=== PATIENT | female | born 1995 | race Caucasian/White ===

== ENCOUNTER → 2020-04-16 13:51 | Outpatient (CLI) | payer BC, SELFPAY ==
--- NOTE | ~2020-04-16 | US_ITS ---
EXAMINATION: US OB <= 14 weeks fetus DATE: 04/16/2020 14:31 INDICATION: Gestational dating TECHNIQUE: Real-time transabdominal obstetric ultrasound. FINDINGS: No prior studies for comparison. The uterus measures 8.9 x 5.6 x 6.2 cm. There is an intrauterine gestational sac, with pole marcio ntified. The crown rump length measures 1.57 cm, which correlates with a estimated gestational age o f 8 weeks 0 days. heart tones are identified measuring 165 bpm. The ovaries within normal kovacs its. No free fluid in the pelvis. IMPRESSION: 1. SL IUP with an EGA of 8 weeks, 0 days (EDC by current ultrasound of 11/26/2020). Reviewed, dictated and finalized at location A. IMPRESSION: 1. SL IUP with an EGA of 8 weeks, 0 days (EDC by current ultrasound of ).
== END ==
PROVIDERS: Visit Provider Obstetrics & Gynecology
DX: O26.841 Uterine size-date discrepancy, first trimester (principal); Z3A.08 8 weeks gestation of pregnancy
CPT/HCPCS: 76801

== ENCOUNTER → 2020-07-03 13:15 | Outpatient (CLI) | payer BC, SELFPAY ==
--- NOTE | ~2020-07-03 | US_ITS ---
EXAMINATION: US OB >= 14 weeks Fetus DATE: 07/03/2020 13:43 INDICATION: Second trimester anatomic survey TECHNIQUE: Real-time ultrasound of the pelvis was performed. COMPARISON: None. FINDINGS: There is a single living fetus in vertex presentation. The placenta is anterior and 7 cm from the int ernal cervical os. heart rate is 151 beats per minute (bpm). cardiac activity and movement are noted. The amniotic fluid index is subjectively normal. The following anatomy was identified as normal: 4 chamber heart 3 vessel cord cord insertion kidneys urinary bladder stomach spine diaphragm ventricles cisterna magna cerebellum The following biometric data were obtained: Biparietal diameter (BPD): 4.7 cm; head circumference (HC): 16.4 cm; abdominal circumference (AC): 14 .0 cm; femur length (FL): 3.0 cm. These measurements are concordant. Estimated weight is 287 g +/- 43 g, which correlates with the 58th percentile when 11/26/2020 is used as estimated date of delivery. As single measurements, these parameters are each equal to the following estimated gestational ages w ith ranges of +/- 2 standard deviations: BPD: 20 weeks 1 days ( 18 weeks 3 days - 22 weeks 0 days). HC: 19 weeks 1 days ( 17 weeks 5 days - 20 weeks 5 days). AC: 19 weeks 3 days ( 17 weeks 2 days - 21 weeks 3 days). FL: 19 weeks 2 days ( 17 weeks 3 days - 21 weeks 0 days). estimated gestational age based solely on measurements from this exam is 19 weeks 4 days +/- 1 weeks 3 days. IMPRESSION: 1. Single living fetus in vertex presentation. 2. Estimated weight is 287 g +/- 43 g, which correlates with the 58th percentile when 11/26/2020 is used as estimated date of delivery. Reviewed, dictated and finalized at location A. IMPRESSION: 1. Single living fetus in vertex presentation. 2. Estimated weight is 287 g +/- 43 g, which correlates with the 58th per centile when 11/26/2020 is used as estimated date of delivery.
== END ==
PROVIDERS: Visit Provider Obstetrics & Gynecology
DX: Z34.92 Encounter for supervision of normal pregnancy, unspecified, second trimester (principal); Z3A.19 19 weeks gestation of pregnancy
CPT/HCPCS: 76805

== ENCOUNTER → 2020-09-11 13:01 | Outpatient (CLI) | payer BC, SELFPAY ==
--- NOTE | ~2020-09-11 | US_ITS ---
EXAMINATION: US OB follow up DATE: 09/11/2020 13:19 INDICATION: Mid size greater than expected for estimated gestational age during third trimester of pr egnancy. TECHNIQUE: Real-time ultrasound of the pelvis was performed. The interpreting radiologist was not pre sent for the study. COMPARISON: 04/16/2020 FINDINGS: There is a single living fetus in vertex presentation. The placenta is anterior and not low-lying. F etal heart rate is 143 beats per minute (bpm). The amniotic fluid index is 12.9 cm, which is normal (5th%-95%: 9.2-23.1 cm at 29 weeks estimated gestational age) . The following biometric data were obtained: BPD: 7.7 cm -> 31 weeks 0 days Head circumference: 28.2 cm -> 31 weeks 0 days Abdominal circumference: 26.8 cm -> 30 weeks 6 days Femur length: 5.4 cm -> 28 weeks 3 days Femur length to biparietal diameter ratio is slightly greater than 2 standard deviations below the me an and the femur length to abdominal circumference ratio is almost 2 standard deviations below the me an. These measurements are otherwise concordant. Head circumference to abdominal circumference ratio: 1.05 (normal range 0.97-1.18). Estimated weight: 1521 g (+/-) 228 g. or 3 lbs. 6 oz. (+/-) 8 oz. IMPRESSION: 1. Single living fetus in vertex presentation with heart rate of 143 bpm. 2. Normal amniotic fluid index of 12.9 cm. 3. Estimated weight is 75th percentile by Hadlock criteria when 11/26/2020 is used as the estima billy date of delivery (VINCE) based upon earliest ultrasound at this institution performed on 04/26/2020. Please correlate with clinical information or earlier ultrasounds for most accurate VINCE. 4. Discordant biometric data with relatively small femur length as indicated by femur length to bipar ietal diameter ratio slightly greater than 2 standard deviations below the mean and femur length to a bdominal circumference ratio almost 2 standard deviations below the mean. Reviewed, dictated and finalized at location A. ATTENDANT IMPRESSION: 1. Single living fetus in vertex presentation with heart rate of 143 bpm. 2. Normal amniotic fluid index of 12.9 cm. 3. Estimated weight is 75th percentile by Hadlock criteria when 11/26/2020 is used as the estimated date of delivery (VINCE) based upon earliest ultrasound at this institution performed on 04/26/2020. Please correlate with clinical inf ormation or earlier ultrasounds for most accurate VINCE. 4. Discordant biometric data with relatively small femur length as indicated by femur length to biparietal diameter ratio slightly greater than 2 standard dev iations below the mean and femur length to abdominal circumference ratio almost 2 standard deviations below the mean.
== END ==
PROVIDERS: Visit Provider Obstetrics & Gynecology Gynecology
DX: O36.63X0 Maternal care for excessive fetal growth, third trimester, not applicable or unspecified (principal); Z3A.31 31 weeks gestation of pregnancy
CPT/HCPCS: 76816

== ENCOUNTER 2020-10-11 18:02 | Observation (INO) | payer BC, SELFPAY ==
[2020-10-11 18:33] VITALS: BP 129/76; PULSE 110; TEMP 36.6
[2020-10-11 18:37] LABS: Basophils Percent Auto 0.4 % (0.2-1.2); Eosinophils Absolute Auto 0.1 K/mm3 (0-0.3); Eosinophils Percent Auto 1.1 % (0-4.4); Hematocrit 31.1 % (37.0-47.0); Hemoglobin 10.9 g/dL (12.0-15.0); Immature Granulocyte Absolute 0.25 K/mm3 (0.00-0.031); Immature Granulocyte Percent A 2.5 % (0-0.5); Lymphocytes Absolute Auto 1.51 K/mm3 (0.9-3.2); Lymphocytes Percent Auto 15.1 % (18.3-44.2); Mean Corpuscular Hemoglobin 30.3 pg (26-34); Mean Corpuscular Volume 86.4 fl (80-100); Mean Platelet Volume 10.2 fl (7.4-10.4); Monocytes Absolute Auto 0.5 K/mm3 (0.1-0.6); Monocytes Percent Auto 4.9 % (2.6-8.5); Neutrophils Absolute Auto 7.6 K/mm3 (1.3-6.7); Platelet Count Result 262 k/mm3 (150-375)
[2020-10-11 18:50] LABS: Alanine Aminotransferase 19 U/L (4-35); Albumin Level 3.6 g/dL (3.5-5.1); Alkaline Phosphatase 159 U/L (38-126); Anion Gap 9 mmol/L (8-16); Aspartate Amino Transferase 24 U/L (14-36); Bilirubin,Total 0.4 mg/dL (0.2-1.3); Blood Urea Nitrogen 3 mg/dL (7-17); Calcium 9.1 mg/dL (8.4-10.2); Carbon Dioxide 23 mmol/L (22-30); Chloride 105 mmol/L (98-107); Estimated Glomerular Filt Rate > 60; Glucose 135 mg/dL (65-105); Potassium 3.4 mmol/L (3.4-5.0); Sodium 137 mmol/L (137-145)
[2020-10-11 19:01] VITALS: BP 124/70; PULSE 106
--- NOTE | 2020-10-11 20:22 | OBADM ---
This patient, Maddie Jewell, admitted to the OB room OB Post 116 for observation. Patient/family oriented to hospital policies and general routines including ID bracelet, bed and alarms, visiting hours, pain management, procedures, bathroom and other care routines, personal items, smoking policy, room service/diet, and visiting hours. Patient/Family are encouraged to report perceived risks to care and to ask questions if they do not understand what they are told or what they should do.
[2020-10-17 17:30] LABS: Chenodeoxycholic Acid 9.3 umol/L (< OR = 3.9); Cholic Acid 25.9 umol/L (< OR = 2.8); Deoxycholic Acid 4.3 umol/L (< OR = 2.3); Total Bile Acids 39.5 umol/L (< OR = 8.3)
--- NOTE | 2020-10-19 08:20 | PM.OBTRLD ---
OB - Triage/Final Diagnosis Visit Information Reason for evaluation: other (puritis of feet and hands) Evaluation Laboratory results: Laboratory Tests 10/11/20 10/11/20 10/11/20 18:22 18:22 18:22 WBC 10.0 RBC 3.60 L Hgb 10.9 L Hct 31.1 L MCV 86.4 MCH 30.3 MCHC 35.0 RDW 13.0 Plt Count 262 MPV 10.2 Immature Gran % (Auto) 2.5 H Neut % (Auto) 76.0 H Lymph % (Auto) 15.1 L [place] % (Auto) 4.9 Eos % (Auto) 1.1 Baso % (Auto) 0.4 Lymph # (Auto) 1.51 [place] # (Auto) 0.5 Eos # (Auto) 0.1 Baso # (Auto) 0.0 Abs Immat Gran (auto) 0.25 H Absolute Neuts (auto) 7.6 H Absolute Nucleated RBC 0.0 Nucleated RBC % 0.0 Sodium 137 Potassium 3.4 Chloride 105 Carbon Dioxide 23 Anion Gap 9 BUN 3 L Creatinine 0.50 L Estim Creat Clear Calc Not Reportable Estimated GFR > 60 Glucose 135 H Calcium 9.1 Total Bilirubin 0.4 AST 24 ALT 19 Alkaline Phosphatase 159 H Total Protein 7.0 Albumin 3.6 Cholic Acid 25.9 H Deoxycholic Acid 4.3 H Chenodeoxycholic Acid 9.3 H Total Bile Acids 39.5 H
== END 2020-10-11 19:18 | disposition home or self-care (01) ==
PROVIDERS: Admitting Provider Obstetrics & Gynecology Gynecology; Visit Provider Obstetrics & Gynecology Gynecology
DX: O26.899 Other specified pregnancy related conditions, unspecified trimester (principal); L29.9 Pruritus, unspecified; Z3A.00 Weeks of gestation of pregnancy not specified
CPT/HCPCS: 36415; 80053; 82542; 85025; G0378; G0379

== ENCOUNTER 2020-10-30 11:17 | Outpatient (CLI) | payer BC, SELFPAY ==
[2020-10-30 11:43] VITALS: BP 127/83; PULSE 110
[2020-10-30 11:45] VITALS: BP 126/75; PULSE 108
[2020-10-30 11:53] LABS: Basophils Absolute Auto 0.1 K/mm3 (0.0-0.1); Basophils Percent Auto 0.5 % (0.2-1.2); Eosinophils Absolute Auto 0.2 K/mm3 (0-0.3); Eosinophils Percent Auto 1.5 % (0-4.4); Hematocrit 30.7 % (37.0-47.0); Hemoglobin 10.2 g/dL (12.0-15.0); Immature Granulocyte Absolute 0.34 K/mm3 (0.00-0.031); Immature Granulocyte Percent A 3.1 % (0-0.5); Lymphocytes Absolute Auto 1.71 K/mm3 (0.9-3.2); Lymphocytes Percent Auto 15.4 % (18.3-44.2); Mean Corpuscular HGB Conc 33.2 g/dl (32-36); Mean Corpuscular Hemoglobin 29.3 pg (26-34); Mean Corpuscular Volume 88.2 fl (80-100); Mean Platelet Volume 10.2 fl (7.4-10.4); Monocytes Percent Auto 9.3 % (2.6-8.5); Neutrophils Absolute Auto 7.8 K/mm3 (1.3-6.7); Neutrophils Percent Auto 70.2 % (45.5-73.1); Platelet Count Result 261 k/mm3 (150-375); Red Blood Count 3.48 M/mm3 (4.2-5.4); Red Cell Distribution Width 13.5 % (11.5-14.5); White Blood Count 11.1 K/mm3 (4.5-10.0)
[2020-10-30 11:59] LABS: Add Urine Microscopic? YES; Appearance Urine Clear (Clear); Bacteria Urine Trace /hpf; Bilirubin Urine Negative (Negative); Blood Urine 1+ (Negative); Color Urine Colorless (Yellow); Creatinine Urine 18.8 mg/dL; Glucose Urine UA Negative (Negative); Ketones Urine Negative (Negative); Leukocyte Esterase Ur Negative LEU/UL (NEGATIVE); Nitrate Urine Negative (Negative); Protein Urine Negative (Negative); Squamous Epithelial Cell Urine Rare /hpf (Few); Total Protein Urine Random 14 mg/dL; Ur Ttl Prot Creatinine Ratio 0.74 mg/mg (0-0.20); Urobilinogen Urine Negative mg/dL (<2.0); WBC Urine 0-3 /hpf (0-3)
[2020-10-30 12:00] VITALS: BP 133/86; PULSE 101
[2020-10-30 12:02] LABS: Specific Grav Ur 1.004 (1.001-1.035)
[2020-10-30 12:06] LABS: Alanine Aminotransferase 17 U/L (4-35); Albumin Level 3.8 g/dL (3.5-5.1); Alkaline Phosphatase 153 U/L (38-126); Anion Gap 7 mmol/L (8-16); Aspartate Amino Transferase 20 U/L (14-36); Bilirubin,Total 0.4 mg/dL (0.2-1.3); Blood Urea Nitrogen 3 mg/dL (7-17); Calcium 9.2 mg/dL (8.4-10.2); Carbon Dioxide 20 mmol/L (22-30); Chloride 109 mmol/L (98-107); Estimated Glomerular Filt Rate > 60; Glucose 79 mg/dL (65-105); Potassium 3.8 mmol/L (3.4-5.0); Sodium 136 mmol/L (137-145); Uric Acid 4.4 mg/dL (2.5-7.5)
[2020-10-30 12:16] VITALS: BP 140/80; PULSE 114
[2020-10-30 12:28] VITALS: BP 127/83; PULSE 112
== END 2020-10-30 12:35 ==
LOC: ANHOBOP 11:22 → ANHOBPP 11:24
PROVIDERS: Visit Provider Obstetrics & Gynecology
DX: O13.9 Gestational [pregnancy-induced] hypertension without significant proteinuria, unspecified trimester (principal); Z3A.00 Weeks of gestation of pregnancy not specified
CPT/HCPCS: 36415; 59025; 80053; 81001; 82570; 84156; 84550; 85025; 87086; 87088; 99199

== ENCOUNTER 2020-10-31 12:42 | Outpatient (NON) | payer BC, SELFPAY ==
[2020-10-31 13:51] VITALS: BMI 36.1
[2020-10-31 14:38] LABS: Collection Time Urine 24 HOURS
[2020-10-31 14:40] LABS: Patient Weight 185 Lbs; Total Volume 24 Hour Urine 2700 ml
[2020-10-31 14:41] LABS: Specific Gravity Ur 1.008
[2020-10-31 14:51] LABS: Creatinine Clearance Urine 215.4 ml/min (75-125); Creatinine Urine 47.8 mg/dL
[2020-10-31 17:43] LABS: Total Protein Urine 24 Hr 456 MG/DAY (28-141); Total Protein Urine Random 16.9 mg/dL (0.0-11.9)
== END 2020-10-31 12:43 ==
PROVIDERS: Visit Provider Obstetrics & Gynecology
DX: O13.9 Gestational [pregnancy-induced] hypertension without significant proteinuria, unspecified trimester (principal); Z3A.00 Weeks of gestation of pregnancy not specified
CPT/HCPCS: 81050; 82575; 84156

== ENCOUNTER 2020-11-02 15:31 | Inpatient (IN) | payer BC, SELFPAY ==
[2020-11-02] VITALS (78 sets, daily range): BP systolic 104–140; BP diastolic 43–79; PULSE 88–128; TEMP 36.4–36.7; O2SAT 95–100; BMI 36.1
--- NOTE | 2020-11-02 15:31 | LDADM ---
This patient, Maddie Jewell, was admitted to Labor/Delivery/Recovery 103 on 11/02/20 at 15:31. Plans for labor, pain management and were discussed with patient. Patient/family oriented to hospital policies and general routines including ID bracelet, bed and alarms, visiting hours, pain management, procedures, bathroom and other care routines, personal items, smoking policy, room service/diet and guest tray routines, security routines, and visiting hours. Patient/Family are encouraged to report perceived risks to care and to ask questions if they do not understand what they are told or what they should do. See OBIX for further documentation.
[2020-11-02 16:28] LABS: Basophils Absolute Auto 0.1 K/mm3 (0.0-0.1); Basophils Percent Auto 0.5 % (0.2-1.2); Eosinophils Absolute Auto 0.1 K/mm3 (0-0.3); Eosinophils Percent Auto 1.1 % (0-4.4); Hematocrit 30.9 % (37.0-47.0); Hemoglobin 10.6 g/dL (12.0-15.0); Immature Granulocyte Absolute 0.36 K/mm3 (0.00-0.031); Immature Granulocyte Percent A 3.2 % (0-0.5); Lymphocytes Absolute Auto 1.68 K/mm3 (0.9-3.2); Lymphocytes Percent Auto 14.9 % (18.3-44.2); Mean Corpuscular HGB Conc 34.3 g/dl (32-36); Mean Corpuscular Hemoglobin 29.9 pg (26-34); Mean Platelet Volume 10.3 fl (7.4-10.4); Monocytes Absolute Auto 1.1 K/mm3 (0.1-0.6); Monocytes Percent Auto 9.4 % (2.6-8.5); Neutrophils Percent Auto 70.9 % (45.5-73.1); Platelet Count Result 261 k/mm3 (150-375); Red Blood Count 3.55 M/mm3 (4.2-5.4); Red Cell Distribution Width 13.3 % (11.5-14.5); White Blood Count 11.3 K/mm3 (4.5-10.0)
[2020-11-02 16:41] LABS: Alanine Aminotransferase 17 U/L (4-35); Albumin Level 3.9 g/dL (3.5-5.1); Alkaline Phosphatase 177 U/L (38-126); Anion Gap 10 mmol/L (8-16); Aspartate Amino Transferase 21 U/L (14-36); Bilirubin,Total 0.4 mg/dL (0.2-1.3); Blood Urea Nitrogen 3 mg/dL (7-17); Carbon Dioxide 21 mmol/L (22-30); Chloride 104 mmol/L (98-107); Estimated Glomerular Filt Rate > 60; Glucose 77 mg/dL (65-105); Potassium 3.7 mmol/L (3.4-5.0); Sodium 135 mmol/L (137-145); Uric Acid 4.3 mg/dL (2.5-7.5)
--- NOTE | 2020-11-02 16:58 | WPDOBADMIT ---
Obstetrics - Admit Note Admission Note: IOL secondary to cholestasis and preeclampsia. AROM /-2 vertex clear fluid. record reviewed. No pertinent additions to the history and/or any subsequent changes in the physical findings that are not consistent with the expected course of the were found. Additions to the history and/or subsequent changes in the physical findings follow. None.
--- NOTE | 2020-11-02 17:01 | WPDANESEPP ---
Anes - Eval Pre Procedure Procedure: labor epidural Date/Time: 11/02/20 17:01 Surgeon: cristiana Pre Op Diagnosis: Induction of Labor Patient Data Age: 25 Gender: F Height: Weight: Last Vital Signs Pulse 114 H 11/02/20 16:45 BP 124/67 11/02/20 16:45 Allergies Allergy/AdvReac Type Severity Reaction Status Date / Time ursodiol Allergy Hives Verified 10/30/20 11:56 Home Medications Medication Instructions Recorded Confirmed Type methylprednisolone [Medrol] 2 mg PO DAILY #30 tablet 10/17/20 10/30/20 Rx PNV cmb#95-ferrous fumarate-FA 1 tablet PO DAILY 10/30/20 10/30/20 History [] cholecalciferol (vitamin D3) 50 mcg PO DAILY 10/30/20 10/30/20 History [Vitamin D3] docusate sodium [Colace] 50 mg PO DAILY 10/30/20 10/30/20 History ergocalciferol (vitamin D2) 1,250 mcg PO WEEKLY 10/30/20 10/30/20 History [Vitamin D2] Laboratory Tests 11/02/20 11/02/20 11/02/20 16:21 16:21 16:21 WBC 11.3 K/mm3 H K/mm3 (4.5-10.0) RBC 3.55 M/mm3 L M/mm3 (4.2-5.4) Hgb 10.6 g/dL L g/dL (12.0-15.0) Hct 30.9 % L % (37.0-47.0) MCV 87.0 fl fl (80-100) MCH 29.9 pg pg (26-34) MCHC 34.3 g/dl g/dl (32-36) RDW 13.3 % % (11.5-14.5) Plt Count 261 k/mm3 k/mm3 (150-375) MPV 10.3 fl fl (7.4-10.4) Immature Gran % (Auto) 3.2 % H % (0-0.5) Neut % (Auto) 70.9 % % (45.5-73.1) Lymph % (Auto) 14.9 % L % (18.3-44.2) [place] % (Auto) 9.4 % H % (2.6-8.5) Eos % (Auto) 1.1 % % (0-4.4) Baso % (Auto) 0.5 % % (0.2-1.2) Lymph # (Auto) 1.68 K/mm3 K/mm3 (0.9-3.2) [place] # (Auto) 1.1 K/mm3 H K/mm3 (0.1-0.6) Eos # (Auto) 0.1 K/mm3 K/mm3 (0-0.3) Baso # (Auto) 0.1 K/mm3 K/mm3 (0.0-0.1) Abs Immat Gran (auto) 0.36 K/mm3 H K/mm3 (0.00-0.031) Absolute Neuts (auto) 8.0 K/mm3 H K/mm3 (1.3-6.7) Absolute Nucleated RBC 0.0 K/mm3 K/mm3 (0.0-0.012) Nucleated RBC % 0.0 % % (0.0-0.2) Sodium 135 mmol/L L mmol/L (137-145) Potassium 3.7 mmol/L mmol/L (3.4-5.0) Chloride 104 mmol/L mmol/L (98-107) Carbon Dioxide 21 mmol/L L mmol/L (22-30) Anion Gap 10 mmol/L mmol/L (8-16) BUN 3 mg/dL L mg/dL (7-17) Creatinine 0.40 mg/dL L mg/dL (0.7-1.0) Estim Creat Clear Calc Not Reportable Estimated GFR > 60 (59 - ) Glucose 77 mg/dL mg/dL (65-105) Uric Acid 4.3 mg/dL mg/dL (2.5-7.5) Calcium 9.0 mg/dL mg/dL (8.4-10.2) Total Bilirubin 0.4 mg/dL mg/dL (0.2-1.3) AST 21 U/L U/L (14-36) ALT 17 U/L U/L (4-35) Alkaline Phosphatase 177 U/L H U/L (38-126) Total Protein 8.0 g/dL g/dL (6.3-8.2) Albumin 3.9 g/dL g/dL (3.5-5.1) RPR Pending Patient hx anesthesia problems: none Family hx anesthesia problems: none PMFSH Family History Family History (System 09/14/20 @ 09:12 by Olga Chung) Other No family history of cardiovascular disease Social History Social History (System 09/14/20 @ 09:12 by Olga Chung) Smoking status: Never smoker Substance use: never Gender identity (if verbalized by the patient): Female Spiritual care concerns: Yes (Buddhist) Exam Day of Procedure 11/02/20 17:01
[2020-11-02] MEDS: LACTATED RINGERS 1,000 ML 125 ML IV CONT ×3 (17:23→22:11)
[2020-11-02] MEDS: OXYTOCIN 30 UNITS/NS 500 ML 30 UNITS/500 ML BAG IV CONT (17:24)
[2020-11-03] VITALS (33 sets, daily range): BP systolic 112–143; BP diastolic 45–86; PULSE 85–138; RESP 16–18; TEMP 36.5–37.2; O2SAT 98–100
[2020-11-03] MEDS: LORATADINE 10 MG TABLET PO (00:12)
--- NOTE | 2020-11-03 01:36 | PM.OBPRVD ---
OB - Delivery Note Procedure Delivery date: 11/03/20 Procedure: events: Pre-Eclampsia and Labor Induction (cholestasis of ) Intrapartal events: None Induction method: AROM and per pitocin protocol Delivery monitor: external FHT and external uterine Route of delivery: Laceration Description: None and Perineal - 2nd Degree Delivery repair: vicryl Specimen: Yes Quantitative Blood Loss (ml): 420 Anesthesia type: Epidural Disposition: floor [place] Baby Date of : 11/03/20 Time of : 01:20 Weeks of gestation at delivery: 36 gender: Male Weight (pounds): 7 Weight (ounces): 5 presentation: vertex position: Left Occiput Anterior Placenta delivery description: Spontaneous cord vessel description: 3 Vessels and Clamped/Cut score one minute: 8 score five minutes: 9
[2020-11-03] MEDS: OXYTOCIN 30 UNITS/NS 500 ML 30 UNITS/500 ML BAG 125 UNITS IV CONT (01:45)
[2020-11-03] MEDS: BENZOCAINE 20% AER SPR (*SP) 56 GM CAN 1 SPRAY TOPICAL (02:34)
[2020-11-03] MEDS: WITCH HAZEL 40 PADS 1 PAD TOPICAL (02:34)
[2020-11-03] MEDS: miSOPROStol 200 MCG TABLET 800 MCG (02:40)
[2020-11-03] MEDS: IBUPROFEN 600 MG TABLET PO ×2 (02:47→08:32)
--- NOTE | 2020-11-03 04:06 | OBPPTRN ---
Patient transferred to post room # 282 via wheelchair. Support person and present. Oriented to unit, room, information board, rooming in, admission packet and security measures. Patient verbalizes understanding.
[2020-11-03] MEDS: ACETAMINOPHEN 325 MG TABLET 650 MG PO ×3 (05:52→18:45)
--- NOTE | 2020-11-03 07:38 | WPDANLDPN2 ---
Anes-Prog Note L&D Date/Time: 11/03/20 07:38 Comfortable throughout: labor and delivery Neuraxial method: epidural Epidural/Spinal procedure site: clean & non-tender Neuro status: Neuro function grossly intact. Cardiovascular status: normal Respiratory status: normal Airway patency: baseline Mental status: baseline Post-Op hydration status: normal Vital Signs: Last Vital Signs Temp 98.2 F 11/03/20 04:30 Pulse 96 11/03/20 04:30 Resp 18 11/03/20 04:30 BP 120/77 11/03/20 04:30 Pulse Ox 98 11/03/20 04:30 Pain score (VAS): 2/10 I/O: Intake & Output 11/02/20 11/02/20 11/03/20 15:59 23:59 07:59 Intake Total 1999 900 Output Total 135 Balance 1999 765 Post-procedural complaints: none Patient feedback: Patient satisfied with anesthetic care.
[2020-11-03] MEDS: MULTIVIT/MIN/PREN/FOL AC/IRON TABLET 1 TAB PO (08:32)
--- NOTE | 2020-11-03 08:51 | PC.NURSE ---
Pt. took medication in labor prior to arrival on unit.
--- NOTE | 2020-11-03 10:19 | PC.NURSE ---
Consulted with patient, reviewed infant feeding cues, frequencies, duration of feedings, feeding elimination flow sheet, and signs of adequate intake. Demonstrated stimulation techniques to wake infant for feeding. Assisted with infant to breast. Reviewed positioning/alignment, holding breast and asymmetrical latch on. Infant was able to latch correctly with nipple shield. latched to breast with 2-3 sucks, despite efforts to stimulate unable to get infant to breastfeed effectively. Reviewed signs of a correct latch, effective nursing and suck swallow ratio. Instructed mother to call out for RN assistance if she is unable to latch for feeding or she has discomfort with nursing. Instructed feeding should be initiated three hours from start of last feeding or if feeding cues are noted before. Mother voiced understanding of information shared. Breast pump provided due to infant not feeding effectively and mom wanting to stimulate her milk supply. Instructions given on breast pump care and usage, pumping schedule, nipple care, and collection and storage of breast milk. Encouraged [id number], breast massage and manual expression to stimulate supply. Assessed patient for correct flange size, placement and draw. Patient verbalizes and demonstrates understanding of instructions. Nipple shield provided to mother with earlier feeding. Instructions given on application and cleaning of shield. Discussed nipple shield precautions and possible complications. Patient able to return demonstration on proper application of shield. Discussed the need to initiate pumping if continues to nurse with the shield. Patient verbalizes understanding.
[2020-11-04] MEDS: ACETAMINOPHEN 325 MG TABLET 650 MG PO (01:20)
[2020-11-04 01:34] LABS: Hemoglobin 9.3 g/dL (12.0-15.0)
[2020-11-04] MEDS: DOCUSATE SODIUM 100 MG CAPSULE PO (09:39)
[2020-11-04] MEDS: MULTIVIT/MIN/PREN/FOL AC/IRON TABLET 1 TAB PO (09:39)
[2020-11-04] MEDS: IBUPROFEN 600 MG TABLET PO (09:39)
[2020-11-04 10:21] VITALS: BP 115/77; PULSE 86; RESP 14; RESP 16; TEMP 36.2; O2SAT 98
[2020-11-04 10:37] LABS: Rapid Plasma Reagin Non-Reactive (NonReactive)
--- NOTE | 2020-11-04 11:15 | PC.NURSE ---
1000 Breast feeding note; nurse present. baby circumcised this a.m.; mother put to breast (nurse encouraged skin to skin for feedings); nipple shield used, and mother stated how to correctly place shield over nipple; baby made a few suckles, but primarily held nipple in his mouth. Mother kept him there about 10 minutes, with no change in his interest or effort. mother then bottle fed baby. baby took bottle feeding eagerly, with strong suck/swallow. Mother will continue pumping at each feeding. Reviewed q3 hour feedings, supplementing after each breast feeding, giving amount wants, minumum 20cc and increasing gradually as he wants. She reports having a Medella pump at home. Mother has her Mother Baby Guide, and breast feeding section flagged for her, including LC contact information. Mother had no questions for nurse, and voiced understanding of all information shared.
[2020-11-05 11:28] VITALS: BP 134/83; PULSE 94; RESP 20; TEMP 36.8; O2SAT 100
--- NOTE | 2020-11-09 20:55 | PM.OBDSVD ---
DS: Admitting Diagnosis Admitting Diagnosis Admitting Diagnosis: preeclampsia and cholestasis of pregancy induction of Labor OB - DS: Summary OB Procedures : NST and Ultrasound OB Procedures Intrapartum: Spontaneous Vag Delivery OB Procedures: : None Time Spent with Patient Time attestation: Total time spent providing and/or coordinating discharge services: DS: Data Data Completed and Pending Completed studies during hospitalization: Pending at discharge 11/03/20 01:16 Surgical [PTH] Routine Discharge Plan Discharge Attending physician on discharge: Scooby Ann Discharging Clinician: Scooby Ann Patient Disposition: Home, Self-Care Activity: may shower and pelvic rest Diet: regular Discharge Instructions: Education: Mom and Baby Guide Given to: Mother Follow-Up: Call your delivering provider's office for an appointment to be seen in: 6 Weeks Mom and baby should come to the [facility] for the follow-up appointment. Appointment Date/Time: November 05, 2020 at 11:00 am What to expect at your follow-up visit: Blood Pressure Check Physical Assessment Call [phone] if you are unable to keep your appointment time. BREAST CARE: * Wear a snug supportive bra. * For engorgement discomfort: Breast Feeding: * Apply warm moist washcloths * Express milk as needed to relieve engorgement * Wear loose clothing * For sore nipples: * Identify correct latch-on * Apply warm moist washcloths before and after nursing * Air dry nipples after nursing * May apply Lansinoh cream to nipples EPISIOTOMY/PERINEAL CARE: * Until bleeding stops, use your ayden bottle after urinating * Change your pad frequently throughout the day * You may take sitz baths several times a day (fill your bathtub with warm water and soak for 20 minutes.) Do NOT bathe in the water * No tub baths until seen by your physician - You may shower ACTIVITY: * Rest as much as possible. * Do not exercise or lift anything heavier than your baby (such as laundry or other children.) * Avoid stairs or driving as much as possible. * Do not put anything into the vagina. No douching, tampons, or sexual activity until seen by physician. NOTIFY PHYSICIAN IF YOU HAVE ANY QUESTIONS OR IF ANY OF THE FOLLOWING SYMPTOMS OCCUR: * If your becomes red, swollen, or more painful than what you have experienced in the hospital. * If your vaginal bleeding becomes foul smelling. * If your vaginal bleeding becomes more heavy than a period or if your bleeding changes from pink to bright red. However, you may pass an occasional walnut-sized clot once or twice for the first week . * If you experience a sharp, shooting pain in your calves. * If you discover a hard, reddened area on your breast or if you experience flu-like symptoms. DIET: * Eat regular, well-balanced meals. * Drink plenty of fluids daily. If , drink to thirst. Stand Alone Forms: General Discharge Information Follow-up/Referrals: Scooby Ann MD [Physician] - Discharge Medications: Continued PNV cmb#95-ferrous fumarate-FA [] 28 mg iron- 800 mcg Tablet 1 tablet PO DAILY RF: 0 docusate sodium 50 mg Capsule 50 mg PO DAILY RF: 0 ergocalciferol (vitamin D2) [Vitamin D2] 1,250 mcg (50,000 unit) Capsule 1,250 mcg PO WEEKLY RF: 0 cholecalciferol (vitamin D3) [Vitamin D3] 50 mcg (2,000 unit) Tablet 50 mcg PO DAILY RF: 0 Discontinued Medrol 2 mg tablet 2 mg PO DAILY Qty: 30 RF: 0 Date of admission: 11/02/20 15:31 Primary Care Provider: PHYSICIAN,SILVER BUFFER Admitting Provider: Scooby Ann Attending physician on admission: Scooby Ann Condition: Stable
== END 2020-11-04 11:30 | disposition home or self-care (01) | DRG 805 ==
LOC: ANHLDR 15:36 → ANHOB2 11-03 04:10
PROVIDERS: Admitting Provider Obstetrics & Gynecology; Visit Provider Obstetrics & Gynecology
DX: O14.94 Unspecified pre-eclampsia, complicating childbirth (principal); K83.1 Obstruction of bile duct; Z37.0 Single live birth; Z3A.36 36 weeks gestation of pregnancy; O26.62 Liver and biliary tract disorders in childbirth; O70.1 Second degree perineal laceration during delivery; O36.8330 Maternal care for abnormalities of the fetal heart rate or rhythm, third trimester, not applicable or unspecified; Z86.16 Personal history of COVID-19
CPT/HCPCS: 36415; 59025; 80053; 81001; 81050; 82570; 82575; 84156; 84550; 85014; 85018; 85025; 86592; 86850; 86900; 86901; 87086; 87088; 88307; 99199; A9270; J2590; J2795; J7120

== ENCOUNTER 2024-01-10 01:15 | Day surgery (SDC) | payer OTHER, SELFPAY ==
[2024-01-02 13:25] VITALS: BMI 35.2
--- NOTE | 2024-01-08 13:13 | SUR.PREOP ---
Patient called regarding upcoming procedure. Reviewed preop instructions, appointment times, and procedure prep.
[2024-01-10 12:08] VITALS: BP 129/73; PULSE 106; RESP 16; TEMP 36.3; O2SAT 99; BMI 33.8
--- NOTE | 2024-01-10 12:31 | WPDANESEPPF ---
Anes - Initial Pre Proc Eval Procedure: Operation Date: 01/10/24 13:30 Proposed Procedures p Esophagogastroduodenoscopy & Colonoscopy - Nilton Rincon MD s [facility] Hemorrhoid Treatment - Nilton Rincon MD Date/Time: 01/10/24 12:31 Surgeon: Nilton Rincon MD Pre Op Diagnosis: Upper Abdominal Pain,Hemorrhoids,Rectal bleeding Patient Data Age: 28 Gender: F Height: 1.52 m Weight: 78.6 kg Last Vital Signs Temp 97.4 F L 01/10/24 12:08 Pulse 106 H 01/10/24 12:08 Resp 16 01/10/24 12:08 BP 129/73 01/10/24 12:08 Pulse Ox 99 01/10/24 12:08 O2 Del Method Room Air 01/10/24 12:08 Allergies Allergy/AdvReac Type Severity Reaction Status Date / Time ursodiol Allergy Hives Verified 01/10/24 12:23 Home Medications Medication Instructions Recorded Confirmed Type docusate sodium 50 mg capsule 50 mg PO DAILY PRN Constipation 10/30/20 01/10/24 History sertraline 25 mg tablet 25 mg PO DAILY 01/02/24 01/10/24 History Patient hx anesthesia problems: none Family hx anesthesia problems: none Results Review: All pre-operative results and documents have been reviewed as part of the pre-operative evaluation. [facility] Past Medical History Medical History (Updated 12/06/23 @ 15:27 by Noa Armenta APRN) Anxiety External hemorrhoids GERD (gastroesophageal reflux disease) Hemorrhoids Obesity Rectal bleeding Upper abdominal pain Surgical History Surgical History (Updated 12/06/23 @ 14:49 by Ty Ruiz) H/O tubal ligation Family History Family History Other No family history of cardiovascular disease Social History Social History (System 09/14/20 @ 09:12 by Olga Chung) Smoking status: Never smoker Second hand tobacco smoke exposure: No Alcohol intake: current Substance use: never Substance use type: does not use Living arrangements: with family Gender identity (if verbalized by the patient): Female Spiritual care concerns: No Anes - Eval Final PreProcedure Day of Procedure 01/10/24 12:31 Patient weight: obese Heart: regular rate and rhythm Lungs: clear to auscultation Airway: Mallampati scale class II Neurological: alert and oriented Last oral intake: >/= 8 hours ASA classification: II Emergent: no Anesthetic plan: proceed Anesthesia type and monitoring: general GIVS and standard monitoring Results Review: All pre-operative results and documents have been reviewed as part of the pre-operative evaluation. Informed Consent: The patient's anesthetic plan and its attendant risks and benefits were discussed with the patient/family/POA. Questions were solicited and answers provided to the satisfaction of the patient/family/POA.
[2024-01-10] MEDS: LACTATED RINGERS 1,000 ML 150 ML IV CONT (12:35)
--- NOTE | 2024-01-10 12:58 | PM.HPGS ---
History of Present Illness History of Present Illness Consent: Risks, benefits, and alternatives have been discussed and questions answered. Patient agrees to proceed with procedure. Chief complaint: Upper Abdominal Pain,Hemorrhoids,Rectal bleeding Narrative: Maddie Jewell is a 28 year old female with intermittent upper abdominal pain, probably once a month, also had hemorrhoids with rectal bleeding previously, never had scopes. Review of Systems Review of Systems: All systems reviewed & are unremarkable except as noted in HPI and below PMFSH Past Medical History Medical History (Updated 12/06/23 @ 15:27 by Noa Armenta, [employer]) Anxiety External hemorrhoids GERD (gastroesophageal reflux disease) Hemorrhoids Obesity Rectal bleeding Upper abdominal pain Surgical History Surgical History (Updated 12/06/23 @ 14:49 by Ty Ruiz) H/O tubal ligation Family History Family History Other No family history of cardiovascular disease Social History Social History (System 09/14/20 @ 09:12 by Olga Chung) Smoking status: Never smoker Second hand tobacco smoke exposure: No Alcohol intake: current Substance use: never Substance use type: does not use Living arrangements: with family Gender identity (if verbalized by the patient): Female Spiritual care concerns: No Meds Home Medications and Allergies Home Medications Medication Instructions Recorded Confirmed Type docusate sodium 50 mg capsule 50 mg PO DAILY PRN Constipation 10/30/20 01/10/24 History sertraline 25 mg tablet 25 mg PO DAILY 01/02/24 01/10/24 History Allergies Allergy/AdvReac Type Severity Reaction Status Date / Time ursodiol Allergy Hives Verified 01/10/24 12:23 Vital Signs Vital Signs - 24 hr 01/10/24 12:08 Temperature 97.4 F L Pulse Rate 106 H Respiratory Rate 16 Blood Pressure 129/73 Pulse Oximetry 99 Oxygen Delivery Room Air Exam Const: General: comfortable and no acute distress HENMT: Face/Nose/Sinus: Normal nares present Eyes: General: appearance normal, both eyes and all related structures Neck: Neck: no JVD Resp: Auscultation: clear to auscultation bilaterally Cardio: Rate: regular rate Rhythm: regular rhythm GI: Inspection: non-distended GI Palp: Yes Soft to palpation Skin: General skin exam: normal color Neuro: General: gait normal Speech: normal speech Extrem: General: normal to inspection Psych: Mental Status: mental status grossly normal Assessment and Plan Assessment and plan (1) Upper abdominal pain: Code(s): R10.10 - Upper abdominal pain, unspecified Status: Acute Assessment and Plan: egd with bx (2) Hemorrhoids: Code(s): K64.9 - Unspecified hemorrhoids Status: Acute Assessment and Plan: if internal hemorrhoids then will treat with irc (3) Rectal bleeding: Code(s): K62.5 - Hemorrhage of anus and rectum Status: Acute Assessment and Plan: colonoscopy
--- NOTE | 2024-01-10 13:11 | SUR.OPER ---
Addendum entered by Gracy Castellon RN 01/10/24 13:18: Colonoscopy end 1318 IRC start 1318 Original Note: EGD end 1306 COLONOSCOPY START 1311
--- NOTE | 2024-01-10 13:22 | W.PM.PROC2 ---
Procedure Note - Detailed Date of Procedure 01/10/24 Pre-op Diagnosis Hemorrhoids Post-op Diagnosis Same Procedure Performed IRC of internal hemorrhoid Surgeon Nilton Rincon MD Anesthesia MAC (also had colonoscopy) Findings grade II internal hemorrhoid, no anal fissure, no bleeding Description of Procedure used anoscopy and found small internal hemorrhoids, no lesions. Then advanced IRC probe, hemorrhoid treated for 1.5secon x5
[2024-01-10 13:24] VITALS: BP 83/46; PULSE 93; RESP 18; O2SAT 99
[2024-01-10 13:38] VITALS: BP 100/55; PULSE 88; RESP 19; O2SAT 100
[2024-01-10 13:39] VITALS: BP 98/69; PULSE 81; RESP 20; O2SAT 100
== END 2024-01-10 13:54 | disposition home or self-care (01) ==
PROVIDERS: PCP Nurse Practitioner Family; Visit Provider Internal Medicine Gastroenterology
PROC: 0DJ08ZZ Inspection of Upper Intestinal Tract, Via Natural or Artificial Opening Endoscopic (ICD-10-PCS; CPT 43235; principal; 2024-01-10 13:30)
PROC: (CPT 46930; 2024-01-10 13:30)
DX: K64.8 Other hemorrhoids (principal); K29.50 Unspecified chronic gastritis without bleeding; F41.9 Anxiety disorder, unspecified
CPT/HCPCS: 45378; 46930; 43239; 88305; J2704; J7120

== ENCOUNTER 2024-02-13 09:17 | Outpatient (CLI) | payer OTHER, SELFPAY ==
--- NOTE | ~2024-02-13 | US_ITS ---
Limited Abdominal Sonogram: Real-time sonographic imaging of the right upper quadrant was performed. Clinical History: Abnormal liver enzymes Findings: The liver appears normal with no evidence of mass lesion or bile duct dilatation. Main por brittany vein demonstrates normal direction of flow. The gallbladder is well distended, and appears normal with no evidence of gallstone or wall thickening. The common bile duct measures 2 mm. The visualize d pancreas, aorta, and IVC are unremarkable. Impression: No significant abnormality seen. Reviewed, dictated and finalized at location M. Impression: No significant abnormality seen.
== END 2024-02-13 09:18 ==
PROVIDERS: PCP Nurse Practitioner Family; Visit Provider Nurse Practitioner Family
DX: R74.8 Abnormal levels of other serum enzymes (principal)
CPT/HCPCS: 76705

== ENCOUNTER 2025-03-17 11:35 | Outpatient (CLI) | payer OTHER, SELFPAY ==
--- NOTE | ~2025-03-17 | XR_ITS ---
AP and oblique views of the right ribs and PA chest radiograph Clinical History: Pain Findings: No rib fracture is seen. Osseous alignment is anatomic. Lungs are clear, without focal cons olidation or pleural effusion. Cardiomediastinal contour is within normal limits. Soft tissues are un remarkable. Impression: No rib fracture is seen. Clear lungs. Reviewed, dictated and finalized at [facility]. Impression: No rib fracture is seen. Clear lungs.
== END 2025-03-17 11:36 | disposition home or self-care (01) ==
PROVIDERS: PCP Nurse Practitioner Family; Visit Provider Nurse Practitioner Family
DX: R07.81 Pleurodynia (principal)
CPT/HCPCS: 71101